=== PATIENT | female | born 1985 | race Hispanic/Latino ===

== ENCOUNTER 2016-06-06 00:19 | Emergency (ER) | payer OTHER ==
[~2016-06-06] VITALS: Ht 152.4 cm; Wt 58.8 kg
[~2016-06-06 00:19] MED LIST: ALBUTEROL S2.5 MG/.5 IN; BCP; BENADRY2 EX; BENADRYL 50MG C50 MG PO; CELEBREX200 MG OR; CLONIDINE0.1 MG PO; FOLIC ACID1 MG OR; LORTAB 7.57.5 MG PO; MOTRIN200 MG PO; NAPROSYN500 MG PO; NO HOME MEDS; PEPCID20 MG PO; PRE-NATAL PO; PRENATAL1 TAB OR; PROVENTIL90 MCG IN; ZOFRAN ODT4 MG PO; ZPAK OR
[2016-06-06 02:03] LABS: URINE BILIRUBIN - DIPSTICK NEGATIVE (NEGATIVE); URINE BLOOD DIPSTICK MODERATE (NEGATIVE); URINE CLARITY SLIGHT CLOUDY; URINE COLOR YELLOW; URINE GLUCOSE - DIPSTICK NEGATIVE (NEGATIVE); URINE KETONE Negative (NEGATIVE); URINE LEUK ESTERASE SMALL (NEGATIVE); URINE NITRITE - DIPSTICK POSITIVE (Negative); URINE PH 6.5 (4.5-8.0); URINE PROTEIN - DIPSTICK Trace mg/dL (NEG-TRACE); URINE SPECIFIC GRAVITY 1.025; URINE UROBILINOGEN - DIPSTICK 0.2 E.U./dL (0.2)
[2016-06-06 02:13] LABS: URINE BACTERIA MANY hpf; URINE SQUAMOUS EPITHELIAL CELL RARE EPI/hpf (0-FEW); URINE WBC 20-50 WBC/hpf (0-5)
[2016-06-06] MEDS ORDERED: CIPROFLOXACN500 MG PO (02:13)
[2016-06-06 02:14] LABS: URINE CALCIUM OXALATE CRYSTALS MODERATE lpf
[2016-06-06 02:56] VITALS: BP 127/86
== END 2016-06-06 02:40 | disposition home or self-care (01) | DRG 690 ==
LOC: ED 00:19
PROVIDERS: Emergency Medicine
DX: N39.0 Urinary tract infection, site not specified (principal); F41.9 Anxiety disorder, unspecified; J45.909 Unspecified asthma, uncomplicated; M06.9 Rheumatoid arthritis, unspecified; M79.7 Fibromyalgia; F17.210 Nicotine dependence, cigarettes, uncomplicated